=== PATIENT | female | born 1935 | race Caucasian/White ===

== ENCOUNTER 2017-05-18 10:20 | Day surgery (SDC) | payer MEDICARE ==
[~2017-05-18] VITALS: Ht 154.9 cm; Wt 65.3 kg
--- NOTE | ~2017-05-18 | EGD ---
EGD REPORT [facility] [address] [place] [address] NAME: MILE BRICE : [birth year] STATUS : REG [facility]#: [id number] AGE: 81 ADM/REG DATE : 05/18/17 MR#: [id number] REPORT SERV DATE: 05/18/17 DICTATED BY: DATE: REPORT STATUS : Draft TRANSCRIBED BY: [employer] DATE: 05/18/17 [facility] Patient Name: Mile Brice Date of : 1935 Attending MD: SHAKIR GOLDBERG MD Procedure Date No Time: 05/18/2017 Procedure: Colonoscopy Indications: High risk colon cancer surveillance: Personal history of non-advanced adenoma Referring MD: DEZ WEEKS Medicines: Monitored Anesthesia Care Complications: No immediate complications. Procedure: Pre-Anesthesia Assessment: - ASA Grade Assessment: II - A patient with mild systemic disease. After I obtained informed consent, the scope was passed under direct vision. Throughout the procedure, the patient's blood pressure, pulse, and oxygen saturations were monitored continuously. The PCF [id number] was introduced through the anus and advanced to the cecum, identified by appendiceal orifice and ileocecal valve. The colonoscopy was performed without difficulty. The patient tolerated the procedure well. The quality of the bowel preparation was excellent. Findings: The perianal and digital rectal examinations were normal. Multiple small-mouthed diverticula were found in the sigmoid colon. A sessile polyp was found in the ascending colon. The polyp was small in size. The polyp was removed with a cold snare. Resection and retrieval were complete. No other significant abnormalities were identified in a careful examination of the remainder of the colon. There is no endoscopic evidence of inflammation, mass, ulcerations or angioectasia in the entire colon. Internal hemorrhoids were found during retroflexion and were Grade I (internal hemorrhoids that do not prolapse). No additional abnormalities were found on retroflexion. Impression: - Diverticulosis in the sigmoid colon. - One small polyp in the ascending colon. Resected and retrieved. - Internal hemorrhoids. Recommendation: - Patient has a contact number available for EGD REPORT [address] [place]. [address] NAME: MILE BRICE : [birth year] STATUS : REG [facility] [place] PAT#: [id number] AGE: 81 ADM/REG DATE : 05/18/17 MR#: [id number] REPORT SERV DATE: 05/18/17 DICTATED BY: DATE: REPORT STATUS : Draft TRANSCRIBED BY: [employer] DATE: 05/18/17 emergencies. The signs and symptoms of potential delayed complications were discussed with the patient. Return to normal activities tomorrow. Written discharge instructions were provided to the patient. - High fiber diet. - Discharge patient to home. - Continue present medications. - Await pathology results. - Repeat colonoscopy is not recommended for surveillance. Procedure Code(s): --- Professional --- 89301, Colonoscopy, flexible, proximal to splenic flexure; with removal of tumor(s), polyp(s), or other lesion(s) by snare technique Diagnosis Code(s): --- Professional --- K64.0, First degree hemorrhoids K57.30, Diverticulosis of large intestine without perforation or abscess without bleeding D12.2, Benign neoplasm of ascending colon Z86.010, Personal history of colonic polyps CPT copyright 2013 [employer]. All rights reserved. The codes documented in this report are preliminary and upon client relationship consultant review may be revised to meet current compliance requirements. SHAKIR GOLDBERG MD 05/18/2017 11:55 AM This report has been signed electronically. Number of Addenda: 0 Note Initiated On: 05/18/2017 11:25 AM Scope Withdrawal Time 0 hours 7 minutes 8 seconds [id number] [place] [id number]
[~2017-05-18 10:20] MED LIST: ANSAID100 MG OR; BUDEPRION XL150 MG PO; CALCIUM; COQ10100 MG OR; ESTRACE0.5 MG PO; FEOSOL PO; HYOMAX-SL0.125 MG PO; IMU PO; LEVOTHYROXIN50 MCG PO; LISINOPRIL; MEVACOR PO; MEVACOR10 MG PO; NORV10 PO; NORV25 PO; PREM.3B PO; PREV30 PO; PRILO PO; PRIN10 PO; SLOW FE PO; TRAZ50 PO; URSO250 PO; VIT D PO; VIT D-3; VITAMIN D31000 UNIT PO; VITE PO; ZESTORETIC PO
== END 2017-05-18 23:59 | disposition home health service (06) ==
LOC: DMU 10:20
PROVIDERS: Internal Medicine Gastroenterology
PROC: 0DBK8ZZ Excision of Ascending Colon, Via Natural or Artificial Opening Endoscopic (ICD-10-PCS; principal; 2017-05-18 12:00)
DX: Z12.11 Encounter for screening for malignant neoplasm of colon (principal); D12.2 Benign neoplasm of ascending colon; K57.30 Diverticulosis of large intestine without perforation or abscess without bleeding; K64.0 First degree hemorrhoids; D64.9 Anemia, unspecified; K21.9 Gastro-esophageal reflux disease without esophagitis; I10 Essential (primary) hypertension; E03.9 Hypothyroidism, unspecified; M19.90 Unspecified osteoarthritis, unspecified site; Z86.010 Personal history of colon polyps; Z88.5 Allergy status to narcotic agent; Z90.710 Acquired absence of both cervix and uterus; Z90.49 Acquired absence of other specified parts of digestive tract; Z98.42 Cataract extraction status, left eye; Z98.890 Other specified postprocedural states; Z79.899 Other long term (current) drug therapy
CPT/HCPCS: 88305